=== PATIENT | male | born 1960 | race African-American/Black ===

== ENCOUNTER 2017-04-07 07:56 | Outpatient (CLI) | payer OTHER ==
--- NOTE | 2017-04-07 10:35 | CT ---
CT ABDOMEN WITH AND WITHOUT CONTRAST: (Renal mass protocol) DATE: 04/07/17. HISTORY: A 57-year-old male for followup right renal mass. TECHNIQUE: Oral contrast: not administered. IV contrast: 100 mL of Isovue 370. Precontrast, nephrographic/venous phase, and excretory/pyelographic phase, scans performed from the l chente bases to iliac crests. COMPARISON: 03/01/14 and 06/13/14. FINDINGS: Again noted is the azygous attenuation of the inferior vena cava, plus retroaortic left renal vein. There is dilation of the bilateral common iliac veins. There is a multiloculated, approximately 3.5 x 3.5 x 3 cm cystic lesion with several thin septations, and no enhancing solid component, at the med ial aspect of the right renal mid pole parenchyma. There is malrotation of the right kidney with ant eriorly facing renal pelvis. There are no renal perfusion defects. There is at least 1 tiny hypoden sity a few millimeters in size in the upper pole cortex of the right kidney which is stable since , too small to characterize, but most likely representing a tiny cyst. The left kidney is abelino l. No hydronephrosis. The abdominal aorta, pancreas, adrenals, liver, and spleen are normal. The l chente bases are clear. No cardiomegaly. No small bowel dilation. No free fluid identified. The visu alized portions of the colon are unremarkable. No interval change overall. The appendix is normal. No major osseous abnormality. IMPRESSION: 1. Multi-chambered, complex cystic lesion in the right kidney, unchanged since 2013, and benign. 2. 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 4. Dilation of the iliac veins. 5. Retroaortic left renal vein. 6. No interval change overall since 03/01/14. POS: [facility]
== END 2017-04-07 07:57 | disposition home or self-care (01) ==
LOC: CT 07:56
PROVIDERS: ATTEND Family Medicine
DX: Q61.00 Congenital renal cyst, unspecified (principal); Q63.2 Ectopic kidney; I86.8 Varicose veins of other specified sites; Q26.8 Other congenital malformations of great veins
CPT/HCPCS: 36415; 74170; 82565

== ENCOUNTER 2018-04-08 14:04 | Outpatient (CLI) | payer OTHER ==
--- NOTE | 2018-04-08 16:03 | ULT ---
BILATERAL RENAL ULTRASOUND: HISTORY: Renal cyst. COMPARISON: Ultrasound from 01/30/2016. CT scan from 04/07/2017. FINDINGS: The right kidney measures 12 cm in length, and the left kidney measures 10.3 cm in length. No hydron ephrosis is seen on either side. No solid mass is identified. There are cysts in the right renal pe lvis/hilum, measuring 2 and 1.8 cm, respectively. The urinary bladder is well distended and normal. IMPRESSION: Right renal cysts. POS: [facility]
== END 2018-04-08 14:05 | disposition home or self-care (01) ==
LOC: BICULT 14:04
PROVIDERS: ATTEND Family Medicine
DX: N28.1 Cyst of kidney, acquired (principal)
CPT/HCPCS: 76770

== ENCOUNTER 2020-04-05 13:00 | Outpatient (CLI) | payer OTHER ==
--- NOTE | 2020-04-05 13:59 | ULT ---
RENAL ULTRASOUND: 04/05/20 HISTORY: Renal cyst. COMPARISON: 01/30/16 exam. Real time imaging of the right and left kidneys were performed. This shows the right kidney measured 10.5 and left kidney 9.5 cm in size. There are two cysts identified within the right kidney. One in a slightly more parapelvic location measuring 2.5 cm and a second cyst measuring approximately 1.8 cm. No obstruction. The bladder region is unremarkable. In comparison to the 01/30/16 study, these appea r stable. IMPRESSION: Stable right sided renal cyst. POS: [facility]
== END 2020-04-05 13:01 | disposition home or self-care (01) ==
LOC: BICULT 13:00
PROVIDERS: ATTEND Urology
DX: Q61.9 Cystic kidney disease, unspecified (principal); N28.1 Cyst of kidney, acquired
CPT/HCPCS: 76770